=== PATIENT | male | born 1985 | race Caucasian/White ===

== ENCOUNTER 2023-07-17 06:40 | Observation (INO) | payer BC ==
[~2023-07-17] VITALS: Ht 177.8 cm; Wt 84.9 kg
== END 2023-07-18 12:09 | disposition home or self-care (01) ==
LOC: ER 06:40 → PCU 06:41
PROVIDERS: ADMIT Hospitalist
DX: I30.1 Infective pericarditis (principal); B95.5 Unspecified streptococcus as the cause of diseases classified elsewhere; J02.0 Streptococcal pharyngitis; Z79.899 Other long term (current) drug therapy